=== PATIENT | male | born 1970 ===

== ENCOUNTER 2018-10-04 05:20 | Inpatient (IN) | payer OTHER ==
[~2018-10-04] VITALS: Ht 160 cm; Wt 103.0 kg
[2018-10-04] VITALS (13 sets, daily range): BP systolic 63–145; BP diastolic 58–80
[2018-10-04] MEDS ORDERED: SIMVASTATIN40 MG ORAL (06:10)
[2018-10-04] MEDS ORDERED: LOSARTAN POTAS100 MG ORAL (06:10)
[2018-10-04] MEDS ORDERED: LORATADINE10 M2 PO (06:10)
[2018-10-04] MEDS ORDERED: METFORMIN HCL1000 M1 ORAL (06:10)
[2018-10-04] MEDS ORDERED: JANUVIA100 MG ORAL (06:10)
[2018-10-04] MEDS ORDERED: NOVOLIN R100 UNIT/1 SUBQ (06:13)
[2018-10-04] MEDS ORDERED: NOVOLIN N100 UNIT/1 SUBQ (06:13)
[2018-10-04] MEDS ORDERED: Propofol 1,000mg/ 100ml btl IV ONE (07:00)
[2018-10-04] MEDS ORDERED: ceFAZolin sod 2 GM in D5W 110 ML IVPB SCH (07:00)
[2018-10-04] MEDS ORDERED: fentaNYL 100 mcg/2 mL IV ONE (07:02)
[2018-10-04] MEDS ORDERED: Midazolam 2mg/2ml Inj ONE (07:02)
[2018-10-04] MEDS ORDERED: Gelfoam Size TOPIC ONE (07:03)
[2018-10-04] MEDS ORDERED: Bupivacaine w/Epi 0.5% 30ml Vial INJ ONE (07:03)
[2018-10-04] MEDS ORDERED: Bacitracin 50000 Units Vial ONE (07:03)
[2018-10-04] MEDS ORDERED: Thrombin 5000 units TOPIC ONE ×2 (07:03→07:04)
[2018-10-04] MEDS ORDERED: Succinylcholine 20mg/ml 10ml vial ONE (07:14)
[2018-10-04] MEDS ORDERED: Zemuron 50mg/5ml Inj IV ONE ×2 (07:14→10:02)
[2018-10-04] MEDS ORDERED: D5 1/2NS 1,000 ML IV SCH (07:28)
--- NOTE | 2018-10-04 07:28 | Pre-Procedure Note/Attestation ---
Pre-Procedure Note/Attestation Complete Prior to Procedure Procedure Narrative: TLIF L5S1 with instrumentation with bone marrow aspirate from ilium Indications for Procedure Pre-Operative Diagnosis: anterolisthesis, stenosis, pars fx and radiculopathy L5S1 Attestation I attest that I discussed the nature of the procedure; its benefits; risks and complications; and alternatives (and the risks and benefits of such alternatives ), prior to the procedure, with the patient (or the patient's legal printing supplies sales representative). I attest that, if there was a reasonable possibility of needing a blood transfusion, the patient (or the patient's legal printing supplies sales representative) was given the [place] [facility] [employer] [facility] standardized written summary, pursuant to the [place] Blood Safety Act ([place] Health and Safety Code # 1645, as amended). I attest that I re-evaluated the patient just prior to the surgery and that there has been no change in the patient's H&P, except as documented below: Lemuel Quintana MD Oct 04, 2018 07:28
[2018-10-04] MEDS ORDERED: NS Irrig 1000ml ONE (07:30)
[2018-10-04] MEDS ORDERED: Milk of Magnesia 30ml Ud ORAL PRN (07:30)
[2018-10-04] MEDS ORDERED: HYDROmorphone 1mg/ml Carpuject SUBQ PRN (07:30)
[2018-10-04] MEDS ORDERED: Naloxone 0.4mg/ml Inj IVP PRN (07:30)
[2018-10-04] MEDS ORDERED: Sterile Water Irrig 1000ml IRRIG ONE (07:30)
[2018-10-04] MEDS ORDERED: Acetaminophen 650 MG SUPP RECTAL PRN (07:30)
[2018-10-04] MEDS ORDERED: LR 1000ml ONE (07:30)
[2018-10-04] MEDS ORDERED: Norco 5mg/325mg tab ORAL PRN (07:30)
[2018-10-04] MEDS ORDERED: Heparin 1000 units/ml 1ml Vial ONE (07:51)
[2018-10-04] MEDS ORDERED: ePHEDrine 50mg/ml Inj ONE (08:40)
[2018-10-04] MEDS ORDERED: Sodium Chloride 10ml vial INJ ONE ×2 (08:40→09:04)
[2018-10-04] MEDS ORDERED: Phenylephrine 10mg/ml Vial ONE (08:57)
[2018-10-04] MEDS ORDERED: Morphine Sulfate 10mg/ml Inj ONE (09:03)
--- NOTE | 2018-10-04 09:22 | Anethesia Preoperative Eval ---
Anesthesia Pre-op PMH/ROS General Date of Evaluation: Oct 04, 2018 Time of Evaluation: 07:15 Anesthesiologist: Aarti ASA Score: ASA 3 Mallampati Score Class I : Soft palate, uvula, fauces, pillars visible Class II: Soft palate, uvula, fauces visible Class III: Soft palate, base of uvula visible Class IV: Only hard plate visible Mallampati Classification: Class III Surgeon: Lilian Diagnosis: Lumbar radiculopathy Surgical Procedure: L5-S1 laminotomy with fusion Anesthesia History: none Family History: no anesthesia problems Allergies: Coded Allergies: No Known Allergies (Unverified , 10/04/18) Patient NPO?: Yes NPO Date: Oct 03, 2018 NPO Time: 2199 Past Medical History Cardiovascular: Denies: HTN, CAD, PR, valve dz, arrhythmia, other Pulmonary: Reports: DAVID; Denies: asthma, COPD, other Gastrointestinal/Genitourinary: Reports: GERD; Denies: CRI, ESRD, other Neurologic/Psychiatric: Reports: other - chronic pain; Denies: dementia, CVA, depression/anxiety, TIA Endocrine: Reports: DM - on high dose of insulin; Denies: hypothyroidism, steroids, other HEENT: Denies: cataract (L), cataract (R), glaucoma, [place] (L), [place] (R), other Hematology/Immune: Denies: anemia, DVT, bleeding disorder, other Musculoskeletal/Integumentary: Denies: OA, RA, DJD, DDD, edema, other Other: obesity - morbid obesity PMH Narrative: as above PSxH Narrative: none Anesthesia Pre-op Phys. Exam Physician Exam Last Vital Signs Date Time Temp Pulse Resp B/P (MAP) Pulse Ox O2 Delivery O2 Flow Rate FiO2 10/04/18 06:00 Room Air 10/04/18 05:55 97.2 89 20 145/80 (101) 97 Constitutional: NAD Neurologic: CN 2-12 intact Cardiovascular: RRR, no M/R/G Respiratory: CTA Gastrointestinal: other - obesity Airway Exam Mallampati Score: Class III MO: limited Neck: short ROM: limited Teeth: intact Dentures: no upper, no lower Anesthesia Pre-op A/P Labs see chart Studies Pre-op Studies: EKG - NSR, echo - EF 55-60% Risk Assessment & Plan Assessment: ASA 3 obesity DAVID poorly control DM Plan: GA with ETT potentially difficult airways, prone positioning neuromonitoring, 40 unit of insulin given PM before NPO preor BS 130 down from 137, will monitor intraoperatively Status Change Before Surgery: No Pre-Antibiotics Drug: Ancef 2gr Given Within 1 Hr of Incision: Yes Time Given: 08:12 Murali Broussard MD Oct 04, 2018 09:22
[2018-10-04] MEDS ORDERED: LR 1000ml 1,000 ML IVLG SCH (09:24)
[2018-10-04] MEDS ORDERED: Hydromorphone 0.5mg/0.5ml inj IVP PRN (09:30)
[2018-10-04] MEDS ORDERED: Meperidine 50mg/ml Inj(FOR RIGORS ONLY) IV PRN (09:30)
[2018-10-04] MEDS ORDERED: Ketorolac 30mg Inj IV PRN (09:30)
[2018-10-04] MEDS ORDERED: Acetaminophen (Non formulary) 100 ML IV ONE (09:30)
[2018-10-04] MEDS ORDERED: DiphenhydrAMINE 50mg/ml Inj IVP PRN (09:30)
[2018-10-04] MEDS ORDERED: Midazolam 2mg/2ml Inj IVP PRN (09:30)
[2018-10-04] MEDS ORDERED: Propofol 200mg/20ml IV ONE ×3 (10:25→11:28)
[2018-10-04] MEDS: Vancomycin 1gm vial IVPB ONE ×2 (11:35→12:01)
[2018-10-04] MEDS ORDERED: Ketorolac 30mg Inj ONE (11:58)
[2018-10-04] MEDS ORDERED: Vancomycin 1gm vial IVPB ONE (11:59)
--- NOTE | 2018-10-04 12:37 | Brief Operative Note ---
Immediate Post Operative Note Operative Note Pre-op Diagnosis: anterolisthesis, stenosis, pars fx and radiculopathy L5S1 Procedure: TLIF L5S1 with BMAC Post-op Diagnosis: same as pre-op Findings: consistent w/pre-op dx studies Surgeon: Lilian Foil Spooler: Ileana Anesthesiologist: Aarti Anesthesia: general Specimen: yes Complications: none Condition: stable Fluids: 1200 cc crystalloid Estimated Blood Loss: volume - 150cc Drains: hemovac Implant(s) used?: Yes - RTI biomechanical device, Nuvasive pedicle screws Lemuel Quintana MD Oct 04, 2018 12:37
[2018-10-04] MEDS ORDERED: Insulin Human Regular 100units/ml 3ml ONE (12:52)
--- NOTE | 2018-10-04 12:59 | Immediate Post-Op Evaluation ---
Immediate Post-Op Evalulation Immediate Post-Op Evalulation Procedure: Posterior lumbar L5-S1 laminotomy with decompression and interbody fusion Date of Evaluation: Oct 04, 2018 Time of Evaluation: 12:58 IV Fluids: 1400 Blood Products: none Estimated Blood Loss: 150 Urinary Output: 250 Blood Pressure Systolic: 102 Blood Pressure Diastolic: 56 Pulse Rate: 86 Respiratory Rate: 20 O2 Sat by Pulse Oximetry: 99 Temperature (Fahrenheit): 97.8 Pain Score (1-10): 2 Nausea: No Vomiting: No Complications none Patient Status: reacts, patent, extubated, none Hydration Status: adequate Murali Broussard MD Oct 04, 2018 12:59
[2018-10-04] MEDS ORDERED: Insulin Human Regular 100units/ml 3ml SUBQ ONE (13:00)
[2018-10-04] MEDS ORDERED: Insulin Human Regular 100units/ml 3ml SUBQ SCH (13:00)
[2018-10-04] MEDS ORDERED: ceFAZolin sod 1 GM in D5W 55 ML IV SCH (14:00)
--- NOTE | 2018-10-04 14:27 | NUR ---
NURSE NOTES: Received report from Chantel Carrillo RN, pt a/a/o x4 laying in bed with no signs of distress or other issues at this time. VS: 112/63, 85, 99@3L via n/c. Surgical dressing dry and intact covered with Dermabond, Telfa and Tegaderm. Hemovac in place draining well. Chowdhury in place with yellow clear urine. Removed 250ml prior of sending pt up. pt in clear liquid advance as tolerated. family at bedside. call light within reach. bed in lowest position. side rales up x2. I will f/u as needed.
--- NOTE | 2018-10-04 14:49 | Diagnostic Imaging Report ---
INDICATION: Pain, intraoperative TECHNIQUE: Intraoperative imaging Fluoroscopy time: 23.6 seconds Total dose: 0.60352 mGym2 Total number of images: 5 COMPARISON: None FINDINGS: Intraoperative images demonstrate needles projected posterior to what are presumably L3 and S1. Subsequent image demonstrates surgical tools posterior to L4 and the L5-S1 disc. Suspect images document placement of posterior fusion hardware and a disc spacer at L5-S1 IMPRESSION: Intraoperative imaging, as described
--- NOTE | 2018-10-04 15:46 | 48 Hour Post Anesthesia Eval ---
Post Anesthesia Evaluation Procedure: Posterior lumbar L5-S1 laminotomy with decompression and interbody fusion Date of Evaluation: Oct 04, 2018 Time of Evaluation: 15:45 Blood Pressure Systolic: 111 0: 66 Pulse Rate: 84 Respiratory Rate: 18 Temperature (Fahrenheit): 97.8 O2 Sat by Pulse Oximetry: 98 Airway: patent Nausea: No Vomiting: No Pain Intensity: 3 Hydration Status: adequate Cardiopulmonary Status: Stable Mental Status/LOC: patient returned to baseline Follow-up Care/Observations: 0 Post-Anesthesia Complications: 0 Follow-up care needed: N/A Kashmir Espino MD Oct 04, 2018 15:46
[2018-10-04] MEDS: ceFAZolin sod 1 GM in D5W 55 ML IV SCH (16:13)
[2018-10-04] MEDS: NS w/KCl 20mEq 1,000 ML IV SCH (16:13)
[2018-10-04] MEDS: NovoLOG Insulin Flexpen SUBQ SCH ×2 (17:23→22:12)
[2018-10-04] MEDS: HYDROmorphone 1mg/ml Carpuject IVP PRN (18:24)
[2018-10-04] MEDS: Metoclopramide 10mg/2ml Inj IVP PRN (18:25)
--- NOTE | 2018-10-04 19:51 | Cardiology Progress Note ---
Assessment/Plan Assessment/Plan [id number] doign well post op await po intake to [facility] for now ISS dvt ppx IS use pain control Objective Last 24 Hour Vital Signs Date Time Temp Pulse Resp B/P (MAP) Pulse Ox O2 Delivery O2 Flow Rate FiO2 10/04/18 18:54 97.8 10/04/18 16:00 97.8 78 18 109/63 (78) 100 10/04/18 15:46 84 18 98 10/04/18 15:00 97.8 81 18 111/66 (81) 98 10/04/18 14:30 97.8 82 18 112/67 (82) 98 10/04/18 13:56 97.4 85 20 63/67 99 Nasal Cannula 3 10/04/18 13:50 86 22 109/67 100 Nasal Cannula 3 10/04/18 13:40 83 16 108/70 100 Nasal Cannula 3 10/04/18 13:39 97.4 10/04/18 13:39 97.4 10/04/18 13:30 85 21 113/67 100 Nasal Cannula 3 10/04/18 13:15 85 19 115/71 100 Simple Mask 6 10/04/18 13:00 82 17 108/67 100 Simple Mask 6 10/04/18 12:59 86 20 99 10/04/18 12:55 87 18 108/65 100 Simple Mask 6 10/04/18 12:49 97.3 88 22 101/59 100 Simple Mask 6 10/04/18 06:00 Room Air 10/04/18 05:55 97.2 89 20 145/80 (101) 97 Intake and Output 10/03/18 10/04/18 19:00 07:00 # Voids 1 Berny Castellanos MD Oct 04, 2018 19:51
--- NOTE | 2018-10-04 20:37 | NUR ---
NURSE NOTES: given report umberto Ang RN, pt in stable condition. I&O's Hemovac out put: 140ml
[2018-10-05] VITALS: BP 119/73
[2018-10-05] MEDS: ceFAZolin sod 1 GM in D5W 55 ML IV SCH ×2 (00:17→08:59)
[2018-10-05] MEDS: HYDROcodone/Acetamin 7.5/325 tab ORAL PRN (00:47)
--- NOTE | 2018-10-05 01:15 | Operative Note - Dictated ---
DATE OF OPERATION: 10/04/2018 PREOPERATIVE DIAGNOSES: L5-S1 grade 1 anterolisthesis, bilateral pars fracture, disk protrusion, severe stenosis, impingement and instability, and left lower extremity radiculopathy. POSTOPERATIVE DIAGNOSES: L5-S1 grade 1 anterolisthesis, bilateral pars fracture, disk protrusion, severe stenosis, impingement and instability, and left lower extremity radiculopathy. PROCEDURES PERFORMED: 1. Posterior interbody fusion at L5-S1. 2. Posterolateral arthrodesis at L5-S1. 3. Pedicle screw instrumentation at L5-S1. 4. Insertion of biomechanical device at interbody space at L5-S1. 5. Use of a bone marrow aspirate concentrate, allograft, and local autograft at L5-S1 for fusion. 6. Right iliac bone marrow aspiration. SURGEON: Lemuel Quintana M.D. PEDIATRIC INTENSIVE PHYSICIAN: Vitor Tejeda M.D. ANESTHESIA: General endotracheal anesthesia. ANESTHESIOLOGIST: Dr. Broussard. INTRAOPERATIVE FINDINGS: Bilateral pars fracture at L5 with severe stenosis bilateral exiting L5 nerve roots with large fibrocartilaginous masses anterior to the pars fracture contributing to impingement of the exiting L5 nerve roots with severe foraminal stenosis with bilateral exiting L5 nerve roots. ESTIMATED BLOOD LOSS: 150 mL. FLUIDS: 1.2 L of crystalloid. INDICATIONS: This is a pleasant gentleman with failed nonoperative treatments including five epidural steroid injections as well as a long course of nonoperative treatment. With failed nonoperative treatment, at this point, my recommendation was for the above surgery. Risks, alternatives, and benefits were discussed with the patient at length. Risks include, but are not limited to, anesthesia complications including , medical complications including liver, kidney, cardiopulmonary deficits, , bleeding, infection, dural tear, CSF leak, nerve root injury, cauda equina syndrome, screw cutoff, screw failure, paralysis as well as other complications. The patient understood and wished to proceed. Written and verbal consent was given. DESCRIPTION OF OPERATION: The patient was brought into the operating room supine on a stretcher. Appropriate IV lines placed by the anesthesiologist. Ancef 2 g was administered before incision and another gram of Ancef was administered intraoperative. A surgical time-out was called. Anesthesia was induced. The patient was successfully intubated. Sequential compression devices were placed onto the bilateral lower extremities. SSEP neurophysiological leads were placed for monitoring of SSEP, EMG, and dermatomal EMGs, and by the end of the case, there was improvement in the dermatomal EMGs of the bilateral L5 nerves. A Chowdhury was placed under sterile conditions. The patient was gently turned prone onto the Simone table. All bony prominences were well padded and the abdomen was assured to lay freely. The L5-S1 interspace was positively identified via fluoroscopy and an indelible marker was used to juliana the midline. The patient was prepped and draped in the usual sterile fashion with alcohol, chlorhexidine scrub, ChloraPrep, and Ioban draping. At this point, me and my anesthesiology physician assistant were prepped and gowned appropriately. The intraoperatively sterilely draped microscope was brought into the field and the surgery was done from skin cut to skin closure with the intraoperatively sterilely draped microscope. A midline incision was carried out with a scalpel to the level of the dorsolumbar fascia. Via a separate fascial incision, the right posterosuperior iliac spine was found and with a Jamshidi needle, 30 mL of bone marrow was aspirated from three different areas of the ilium and was passed off for concentration for stem cells. These stem cells were mixed with the local autograft and Ceci allograft and was used in the interbody space for fusion as well as the posterolateral gutters for fusion. Again, the aspiration was done after the skin incision, but before the midline fascial incision, and was placed in the interbody space as well as the posterolateral gutters later in the operation. Now, subperiosteal dissection was carried out to L5-S1 including the transverse processes bilaterally at L5 to sacral ala. The L4-L5 facet joint capsule was well preserved. A radiopaque marker was placed at the level of the lower pedicle and the S1 pedicle was positively identified and thus the L5-S1 interspace was positively identified. A rongeur was used to examine the lamina at L5 and the lamina was unstable and loose secondary to bilateral pars fractures. The pars area was examined and both pars at L5 were fractured through and through. Retractors were set into place and at this point, attention was diverted to the decompression. With the use of a high-speed drill as well as a Leksell rongeur, #2 to #5 Kerrison punches, a laminectomy, foraminotomy, and excision of the inferior articular facet at L5 bilaterally was done. An extensive foraminotomy bilaterally was done for the exiting L5 nerve roots, which were severely compressed and impinged and stenotic as they were exiting the foramina, and through their course from the medial aspect of the L5 pedicles where there was a large fibrocartilaginous mass growing; the large fibrocartilaginous mass was deep to the pars area, which was fractured. With a #2 Kerrison punch, the fibrocartilaginous mass was removed bilaterally and the L5 nerve root was completely decompressed throughout its course around the medial aspect of the pedicles and through the foraminal space. A portion of the S1 lamina on the left side was also removed for complete decompression of the traversing and exiting S1 nerve root and a complete skeletonization of the left S1 pedicle was done with #2 and #3 Kerrison punches as well as with a 3-0 and 4-0 curved curettes. Once this was accomplished now, a Lemhi probe was placed immediately cephalad to the cephalad portion of the left S1 pedicle protecting the exiting L5 nerve root and a high-speed drill was used to completely remove the left superior articular facet of S1 to further decompress the exiting L5 nerve root on the left side. Once this was done, with a [place] #4 and nerve root retractor, the neural elements were carefully retracted medially and with bipolar cautery, the epidural veins were cauterized and a micro scissors was used to cut the coagulated epidural vein and a disk protrusion at L5-S1 was found extending into the left foramina and impinging on the exiting left L5 nerve root. Once this was done, a #11 blade was used to make a box incision in the posterior annulus of the disk and with the use of pituitary rongeurs, straight forward angled, backward angled, Peapod, nerve hook as well as different ti, a radical diskectomy at L5-S1 was accomplished. Endplate cartilage was removed. Endplate bone was well preserved, and at this point, attention was diverted to placement of the right L5 and S1 pedicle screws. A high-speed drill was used at the level of the mammillary process at L5 and the posterolateral aspect of the remainder of the superior articular facet, and with a Lenke probe, the center of the pedicle was probed and was checked via biplanar fluoroscopy. Once this was completed, a ball-tip probe was used and the pedicles were found to not have any breaches, 5.5 tap from the NuVasive system was used to tap the center of the pedicles and the following pedicle screws were placed on the right side. At L5, a 6.5 x 45 mm polyaxial screw from the NuVasive Reline System was used and at S1, a 6.5 x 40 mm screws were used. All screws were from the NuVasive system. The screws had excellent purchase and the S1 screw on the right side had bicortical purchase. Once this was done, a provisional kp was used with setscrews to distract at the L5-S1 level thus facilitating insertion of the biomechanical devices via a left-sided transforaminal approach. Once this was accomplished, a trial from the Memopal TETRAfuse 3D system was used and a 9 mm in height lordotic 6-degree, 22 mm in length TETRAfuse biomechanical device was chosen. The anterior interbody space was packed with local autograft from the laminectomy, [place] allograft as well as bone morphogenic protein. This was packed with a funnel into the anterior interbody space and subsequently the biomechanical device was tamped into place at L5-S1 with re-creation of disk height and excellent apposition against the endplates at L5 and S1 without any subsidence or fracturing of the endplates. The biomechanical device was found to be in excellent position and fitting well and stable within the interbody space. The introducer was removed and biplanar fluoroscopy revealed the instrumentation to be in good position. At this point, the provisional kp was released from the right side and attention was diverted to the left L5 and S1 pedicle. With a Lenke curved probe, the pedicles at left L5 and S1 were found via biplanar fluoroscopy, a ball-tip probe was used. There were no cortical breaches. Appropriate-sized 5.5 mm tap was used to tap the center of the pedicle and the following pedicle screws were placed on the left side at L5, 6.5 x 50 mm and at S1, 6.5 x 25 mm. Each screw had excellent purchase and was stable. At this point, stimulus-evoked EMG was done at each screw and at 20 milliamps of current, there was no conduction in the respective nerve roots. Once this was completed, the wound was copiously irrigated with triple antibiotic solution and 4 mL of Tisseel fibrin glue was placed at the posterior annulotomy site to prevent posterior migration of bone morphogenic protein from interbody space. Once this was done, decortication of the transverse process and sacral ala was done and with local autograft and allograft and BMAC, a posterolateral arthrodesis was done and placement of bone graft and the posterolateral gutters was accomplished on the right side. These stem cells were mixed with the local autograft and Ceci allograft and was used in the interbody space for fusion as well as the posterolateral gutters for fusion. The bone marrow aspiration was done after the skin incision, but before the midline fascial incision, and was placed in the interbody space as well as the posterolateral gutters. At this point, attention was diverted to placement of rods and screws in the tulips of the pedicle screws, setscrews were placed and were torqued appropriately, and at this point, Valsalva 40 mmHg was done. There was no CSF leak. All sponge, needle, and instrument counts were correct. A subfascial Hemovac drain was placed. Vancomycin powder 1 g was placed subfascially and 1 g was placed suprafascially. The dorsal lumbar fascia was closed with #1 Vicryl sutures in a watertight interrupted fashion. The subdermal and subcuticular layers were closed with 2-0 Vicryl sutures. The skin was closed with Dermabond. Sterile dressing tape was placed. There were no complications during the case. All sponge, needle, and instrument counts were correct. The patient was turned supine, was found to be in stable condition, was taken to the recovery room in stable condition, and was admitted to the hospital for monitoring. Lemuel Quintana M.D. DR: ENID JOB#: [id number] CC: FELICE
--- NOTE | 2018-10-05 02:30 | Consultation ---
DATE OF CONSULTATION: 10/04/2018 INTERNAL MEDICINE CONSULTATION CONSULTING PHYSICIAN: Berny Castellanos M.D. REFERRING PHYSICIAN: Lemuel Quintana M.D. REASON FOR REFERRAL: Postoperative medical care. HISTORY OF PRESENT ILLNESS: This is a 47-year-old gentleman with history of hypertension, who presented to the hospital after having had surgery for lumbar radiculopathy. This was completed by Dr. Quintana. He did not receive any steroids. The patient's blood sugar preop had dropped, we will monitor and they are adequate. The patient had been NPO. The patient now being seen. He has had some clear liquids, although not much. His main issue has been somewhat nausea. No vomiting. He really does not have any chest pain or shortness of breath. He does not have any PND, orthopnea, and palpitations. PAST MEDICAL HISTORY: Positive for diabetes mellitus. MEDICATIONS: His medications prior to admission include Novolin insulin, metformin 500 mg twice daily, Januvia 100 mg daily, simvastatin 40 mg daily, and loratadine 10 mg daily. SOCIAL HISTORY: He does not smoke. No alcohol. No drugs. FAMILY HISTORY: Father is alive at age 70. Mother is alive at age 71. Twin brothers, one sister healthy. Two sons, one daughter healthy. Family history is positive for history of high blood pressure. ALLERGIES: He has no known drug allergies. REVIEW OF SYSTEMS: GASTROINTESTINAL: Positive for nausea. No vomiting. No bowel movement. GENITOURINARY: He has a Chowdhury catheter in place. No discomfort on urination. PULMONARY: Denies any coughing or wheezing. CONSTITUTIONAL: No fevers, chills, or night sweats. NEUROLOGIC: Negative. He does have some pain at the site of his surgery. LABORATORY VALUES: Ordered. Preoperatively, EKG, sinus rhythm, normal QRS axis, no ST or T-wave abnormalities. His blood tests, sodium 142, potassium 4.5, chloride 102, bicarbonate 28, BUN of 13, creatinine 0.77, and blood sugars 112. His white count 9.3, hemoglobin 13.6, and platelet count of 275. His PT and PTT within normal limits. ASSESSMENT/PLAN: 1. Anterolisthesis, stenosis, fracture and radiculopathy of L5-S1. 2. Diabetes mellitus. 3. Obesity. Dr. Quintana states he was seen in cardiac consultation. The patient was just started on some clear liquids. He seems to have some nausea, which is to be treated with pain medications. He has not been out of bed yet. His p.o. intake is restricted. The patient was placed on insulin sliding scale. Adjustment based on his p.o. intake. Once adequate by mouth intake is assured and intolerance is short, the patient will be started on his usual diabetic medications and other medications for pain control. As per yourself, he will be continued DVT prophylaxis and incentive spirometer. We will discuss with the patient, hopefully will be able to get up from and possibly go home soon thereafter. His vital signs appeared to be stable. His blood pressure is 109/63, temperature 97.8, heart rate is 78. He looks well. He is comfortable lying down, although we will assess again tomorrow morning depending on his ability to take p.o. intake for addition of medications for diabetes. Berny Castellanos M.D. DR: WIL JOB#: [id number] CC:
[2018-10-05] MEDS: NS w/KCl 20mEq 1,000 ML IV SCH ×3 (03:43→22:17)
[2018-10-05] MEDS: Metoclopramide 10mg/2ml Inj IVP PRN (03:58)
[2018-10-05] MEDS: HYDROmorphone 1mg/ml Carpuject IVP PRN ×5 (03:58→17:14)
[2018-10-05 04:00] VITALS: BP 133/75
[2018-10-05] MEDS: NovoLOG Insulin Flexpen SUBQ SCH ×4 (06:37→20:31)
--- NOTE | 2018-10-05 07:45 | NUR ---
HAND-OFF: Report given to JULIO LOBO.
[2018-10-05 08:00] VITALS: BP 128/72
--- NOTE | 2018-10-05 08:28 | NUR ---
NURSE NOTES: Patient alert x4, on nasal cannula at 3 liter, no sign of distress and shortness of breath. No sign of chest pain. Dressing at the lumbar dry and intact, hemovac drains bloody drainage. IV left hand runs fluid at 100 cc. Will give pain med as needed. Family member at the bed side. Bed at lowest position, side rails up x2, breaks engaged. Call light within reach. Will keep monitoring.
[2018-10-05] MEDS: Docusate 100mg cap ORAL SCH ×2 (08:58→17:14)
--- NOTE | 2018-10-05 11:32 | NUR ---
CASE MANAGEMENT: INITIAL REVIEW 47 YO M PRESENTED TO OUR ED FROM HOME CC: BACK PAIN PMHx: HTN. DM. BACK INJURY. SI:LUMBAR RADICULOPATHY. T 97.2 HR 89 RR 20 B/P 145/80 SATS 97% ON RA NO LABS TODAY IS: OR MEDS PATIENT ADMITTED TO MED/SURG 10/04/2018 @ 0728 DCP: PATIENT TO BE DISCHARGED TO HOME ONCE MEDICALLY CLEARED. PLAN OF CARE: PT EVAL FULL LIQUID Procedure Narrative: TLIF L5S1 with instrumentation with bone marrow aspirate from ilium Pre-Operative Diagnosis: anterolisthesis, stenosis, pars fx and radiculopathy L5S1
--- NOTE | 2018-10-05 14:38 | Cardiology Progress Note ---
Assessment/Plan Assessment/Plan 1. Anterolisthesis, stenosis, fracture and radiculopathy of L5-S1. 2. Diabetes mellitus. 3. Obesity. doing well post op d no 1 had flatus walked no bm stillwith pain and [place] tolerate some diet ISS will restart metformin dvt ppx IS use pain control ambualte Subjective Cardiovascular: Denies: chest pain, lightheadedness, palpitations Respiratory: Denies: shortness of breath Gastrointestinal/Abdominal: Reports: nausea, other - no bm bu t had odalys faltus ; Denies: abdominal pain Genitourinary: Reports: no symptoms Objective Last 24 Hour Vital Signs Date Time Temp Pulse Resp B/P (MAP) Pulse Ox O2 Delivery O2 Flow Rate FiO2 10/05/18 12:30 98.5 10/05/18 09:00 Nasal Cannula 3.0 10/05/18 08:00 98.0 89 18 128/72 (90) 98 10/05/18 04:00 97.1 90 18 133/75 (94) 99 10/05/18 01:17 98.5 10/05/18 00:00 98.0 88 18 119/73 (88) 98 10/04/18 21:00 Nasal Cannula 3.0 10/04/18 20:00 98.5 73 18 102/58 (73) 98 10/04/18 16:00 97.8 78 18 109/63 (78) 100 10/04/18 15:46 84 18 98 10/04/18 15:00 97.8 81 18 111/66 (81) 98 General Appearance: alert Neck: supple Cardiovascular: normal rate, regular rhythm Respiratory/Chest: lungs clear, normal breath sounds Abdomen: normal bowel sounds, non tender, soft Extremities: no swelling, other - pneuamonatic stokcing in palce Intake and Output 10/04/18 10/05/18 18:59 06:59 Intake Total 2100 ml 300 ml Output Total 400 ml 1320 ml Balance 1700 ml -1020 ml Intake Oral 100 ml IV Total 2100 ml 200 ml Output Urine Total 250 ml 1200 ml Drainage Total 120 ml Estimated Blood Loss 150 ml Berny Castellanos MD Oct 05, 2018 14:38
--- NOTE | 2018-10-05 15:01 | NUR ---
PT Note PT ministerio completed, treatment initiated. Patient was able to ambulate with a FWW x 80 ft. He c/o dizziness during gait training. Patient needs PT services to increase his muscle strength and to educate/train him and family on proper body mechanics for safe and independent functional mobility and gait. Addendum: 10/05/18 at 1502 by DAPHNEY JUAREZ PT Amended: Links added.
[2018-10-05 16:00] VITALS: BP 117/74
[2018-10-05 16:58] LABS: ANION GAP 7 mmol/L (5-15); BLOOD UREA NITROGEN 9 mg/dL (7-18); CALCIUM 7.8 MG/DL (8.5-10.1); CARBON DIOXIDE 30 MMOL/L (21-32); CHLORIDE 105 MMOL/L (98-107); CREATININE 0.9 MG/DL (0.55-1.30); POTASSIUM 4.4 MMOL/L (3.5-5.1); SODIUM 142 MMOL/L (136-145)
[2018-10-05] MEDS: metFORMIN 500mg tab ORAL SCH (18:38)
--- NOTE | 2018-10-05 19:41 | NUR ---
HAND-OFF: Report given to YAMIL Concepcion.
--- NOTE | 2018-10-05 19:42 | NUR ---
NURSE NOTES: Received report & pt from YAMIL Swift. Pt lying in bed, a&ox4, on o2 via NC @ 3LPM, family member at bedside. No s/s of acute distress & c/o 10/10 pain at this time. Will give pain med when due & pt verbalized understanding. Chowdhury intact draining yellow urine output to gravity. Hemovac intact. Surgical dressing C/D/I. IV site intact with IVF running as ordered. Bed in lowest position, call light within reach. Will continue to monitor.
[2018-10-05 20:00] VITALS: BP 133/77
[2018-10-06] VITALS: BP 127/71
[2018-10-06 04:00] VITALS: BP 122/69
[2018-10-06] MEDS: NovoLOG Insulin Flexpen SUBQ SCH ×4 (06:08→20:13)
--- NOTE | 2018-10-06 07:17 | NUR ---
HAND-OFF: Report given to YAMIL Mancia.
--- NOTE | 2018-10-06 07:30 | NUR ---
NURSE NOTES: Patient is in bed awake and able to verbalize needs. Stable with no s/s acute distress. Denies pain at this time. Surgical site clean, dry, and intact. Patient comfortable in bed in locked position with call light within reach. Will continue to monitor.
[2018-10-06 08:00] VITALS: BP 131/75
[2018-10-06] MEDS: NS w/KCl 20mEq 1,000 ML IV SCH ×2 (08:01→17:29)
[2018-10-06] MEDS: metFORMIN 500mg tab ORAL SCH ×2 (08:58→17:29)
[2018-10-06] MEDS: Docusate 100mg cap ORAL SCH ×2 (08:58→17:29)
[2018-10-06] MEDS: HYDROcodone/Acetamin 7.5/325 tab ORAL PRN ×4 (10:03→20:30)
[2018-10-06 11:47] VITALS: BP 113/61
--- NOTE | 2018-10-06 14:20 | Cardiology Progress Note ---
Assessment/Plan Assessment/Plan 1. Anterolisthesis, stenosis, fracture and radiculopathy of L5-S1. 2. Diabetes mellitus. 3. Obesity. doing well post op d no 2 had flatus no bm no bm still with pain andif sits walked already bu cannot sit tolerate some diet ISS on metformin i on clear liquid only will add lwo dose januvia as bs [id number] dvt ppx IS use pain control ambualte will have ekg in light of chest pain he said he had on my question ing ( he never complained to the staff about nay cp ) jackson will see later today d/w rn Subjective Cardiovascular: Reports: chest pain - left side nto suer if related to his position durigtn surgery he says ; Denies: lightheadedness Respiratory: Denies: shortness of breath Gastrointestinal/Abdominal: Denies: abdominal pain Genitourinary: Denies: burning Subjective pain in the left leg when tries to sit for more than 1 min he says Objective Last 24 Hour Vital Signs Date Time Temp Pulse Resp B/P (MAP) Pulse Ox O2 Delivery O2 Flow Rate FiO2 10/06/18 11:47 98.5 88 18 113/61 (78) 97 10/06/18 09:00 Nasal Cannula 2.0 10/06/18 08:00 99.0 99 18 131/75 (93) 96 10/06/18 04:00 98.6 84 17 122/69 (86) 98 10/06/18 00:00 98.7 87 18 127/71 (89) 97 10/05/18 21:00 Nasal Cannula 2.0 10/05/18 20:00 97.7 101 18 133/77 (95) 98 10/05/18 17:44 98.5 10/05/18 16:00 98.0 96 18 117/74 (88) 96 General Appearance: no apparent distress, alert, obese Cardiovascular: normal rate, regular rhythm Respiratory/Chest: lungs clear Abdomen: normal bowel sounds, non tender, soft Extremities: no swelling Intake and Output 10/05/18 10/06/18 18:59 06:59 Intake Total 1100 ml 1600 ml Output Total 2443 ml 1930 ml Balance -1343 ml -330 ml Intake Oral 300 ml IV Total 1100 ml 1300 ml Output Urine Total 2400 ml 1900 ml Drainage Total 43 ml 30 ml Laboratory Tests Test 10/05/18 15:50 Sodium Level 142 MMOL/L (136-145) Potassium Level 4.4 MMOL/L (3.5-5.1) Chloride Level 105 MMOL/L (98-107) Carbon Dioxide Level 30 MMOL/L (21-32) Anion Gap 7 mmol/L (5-15) Blood Urea Nitrogen 9 mg/dL (7-18) Creatinine 0.9 MG/DL (0.55-1.30) Estimat Glomerular Filtration Rate > 60 mL/min (>60) Glucose Level 233 MG/DL (74-106) H Calcium Level 7.8 MG/DL (8.5-10.1) L Microbiology Date/Time Source Procedure Growth Status 10/04/18 06:03 Nasal Nares MRSA Culture - Final NO METHICILLIN RESISTANT STAPH AUREUS... Complete Berny Castellanos MD Oct 06, 2018 14:20
--- NOTE | 2018-10-06 14:30 | NUR ---
NURSE NOTES: Removed powell catheter as ordered, tolerated well, no s/s burning or discomfort. Will continue to monitor patient.
--- NOTE | 2018-10-06 15:30 | NUR ---
NURSE NOTES: Patient voided in toilet. No complaints of burning or discomfort when urinating. Will continue to monitor.
[2018-10-06 15:39] LABS: BASOPHILS % (AUTO) 0.5 % (0.0-2.0); EOSINOPHILS % (AUTO) 0.6 % (0.0-3.0); HEMATOCRIT 32.9 % (42.0-52.0); HEMOGLOBIN 10.8 G/DL (14.2-18.0); MEAN CORPUSCULAR VOLUME 83 FL (80-99); MONOCYTES % (AUTO) 7.2 % (1.0-10.0); NEUTROPHILS % (AUTO) 75.7 % (45.0-75.0); PLATELET COUNT 215 K/UL (150-450); RED BLOOD COUNT 3.95 M/UL (4.70-6.10); RED CELL DISTRIBUTION WIDTH 12.1 % (11.6-14.8); WHITE BLOOD COUNT 11.1 K/UL (4.8-10.8)
[2018-10-06 16:00] VITALS: BP 127/76
--- NOTE | 2018-10-06 17:15 | NUR ---
NURSE NOTES: Dr. Quintana removed hemovac and changed surgical dressing, tolerated well. Patient complains of 8/10 pain, will administer pain medication as ordered. Patient is stable and comfortable in bed in locked position with call light within reach.
--- NOTE | 2018-10-06 17:44 | General Progress Note ---
Subjective Constitutional: Reports: no symptoms HEENT: Reports: no symptoms Cardiovascular: Reports: no symptoms Respiratory: Reports: no symptoms Gastrointestinal/Abdominal: Reports: no symptoms Genitourinary: Reports: no symptoms Neurologic/Psychiatric: Reports: no symptoms Endocrine: Reports: no symptoms Hematologic/Lymphatic: Reports: no symptoms Allergies: Coded Allergies: No Known Allergies (Unverified , 10/04/18) Subjective Pt is doing well. Minimal pain. Standing, walking and sitting. Tolerating diet. On ISS. Some left leg discomfort in the AM; now resolved. AVSS A and O times 3 Inc cdi dressing changed HV 30cc-- dc'd calves soft and nt LT intact; 5/5 motor in the UE and LE; abd soft and nt BS 196 Hg 10.8 A: Doing well on POD 2 P: ambulate PT pain meds medicine fu dc tomorrow fu 7 days post op instructions given Objective Last 24 Hour Vital Signs Date Time Temp Pulse Resp B/P (MAP) Pulse Ox O2 Delivery O2 Flow Rate FiO2 10/06/18 16:00 98.6 93 20 127/76 (93) 97 10/06/18 11:47 98.5 88 18 113/61 (78) 97 10/06/18 09:00 Nasal Cannula 2.0 10/06/18 08:00 99.0 99 18 131/75 (93) 96 10/06/18 04:00 98.6 84 17 122/69 (86) 98 10/06/18 00:00 98.7 87 18 127/71 (89) 97 10/05/18 21:00 Nasal Cannula 2.0 10/05/18 20:00 97.7 101 18 133/77 (95) 98 10/05/18 17:44 98.5 Intake and Output 10/05/18 10/06/18 18:59 06:59 Intake Total 1100 ml 1600 ml Output Total 2443 ml 1930 ml Balance -1343 ml -330 ml Intake Oral 300 ml IV Total 1100 ml 1300 ml Output Urine Total 2400 ml 1900 ml Drainage Total 43 ml 30 ml Laboratory Tests 10/06/18 15:10: White Blood Count 11.1H, Red Blood Count 3.95L, Hemoglobin 10.8L, Hematocrit 32.9L, Mean Corpuscular Volume 83, Mean Corpuscular Hemoglobin 27.4, Mean Corpuscular Hemoglobin Concent 32.8, Red Cell Distribution Width 12.1, Platelet Count 215, Mean Platelet Volume 7.8, Neutrophils (%) (Auto) 75.7H, Lymphocytes ( %) (Auto) 16.0L, Monocytes (%) (Auto) 7.2, Eosinophils (%) (Auto) 0.6, Basophils (%) (Auto) 0.5 Height (Feet): 5 Height (Inches): 3.00 Weight (Pounds): 227 Lemuel Quintana MD Oct 06, 2018 17:44
--- NOTE | 2018-10-06 19:27 | NUR ---
HAND-OFF: Report given to Carlene LOBO. Patient is stable.
--- NOTE | 2018-10-06 19:30 | NUR ---
NURSE NOTES: Received report & pt from YAMIL Mancia. Pt lying in bed, a&ox4, in room air, family member at bedside. No s/s of acute distress & c/o 4/10 pain at this time. Will give pain med when due & pt verbalized understanding. Surgical dressing C/D/I. IV site intact with IVF running as ordered. Bed in lowest position, call light within reach. Will continue to monitor.
[2018-10-06 20:00] VITALS: BP 121/64
[2018-10-07] MEDS: NS w/KCl 20mEq 1,000 ML IV SCH ×2 (03:24→13:58)
[2018-10-07] MEDS: HYDROcodone/Acetamin 7.5/325 tab ORAL PRN ×2 (03:28→16:37)
[2018-10-07 03:35] VITALS: BP 131/78
[2018-10-07] MEDS: NovoLOG Insulin Flexpen SUBQ SCH ×3 (05:58→16:42)
[2018-10-07] MEDS ORDERED: sitaGLIPtin 25mg tab ORAL SCH (06:30)
--- NOTE | 2018-10-07 07:30 | NUR ---
NURSE NOTES: Patient is in bed awake and able to verbalize needs. Stable with no s/s acute distress. Patient denies pain or SOB at this time. Surgical site clean, dry, and intact. Patient is eating breakfast, tolerated well. IV infusing as ordered, no complications noted. Patient is comfortable in bed with at bedside and call light within reach. All needs met at this time. Will continue to monitor.
--- NOTE | 2018-10-07 07:38 | NUR ---
HAND-OFF: Report given to YAMIL Mancia.
[2018-10-07 08:00] VITALS: BP 127/79
[2018-10-07] MEDS: metFORMIN 500mg tab ORAL SCH (09:18)
[2018-10-07] MEDS: Docusate 100mg cap ORAL SCH (09:18)
[2018-10-07] MEDS: HYDROmorphone 1mg/ml Carpuject IVP PRN (09:25)
[2018-10-07 12:00] VITALS: BP 135/67
--- NOTE | 2018-10-07 17:25 | NUR ---
NURSE NOTES: staffing branch manager Latonia instructed RN to send patient home with raised toilet seat and front wheel walker in patient's room upon discharge. Charge nurse made aware. Will discharge patient as ordered.
--- NOTE | 2018-10-07 18:30 | NUR ---
NURSE NOTES: Patient discharged home as ordered. Stable with no s/s acute distress. Patient denies pain at this time. IV removed without complications. Surgical site is clean, dry, and intact. Patient was given thorough discharge instructions by RN, patient verbalized understanding. Patient has all belongings. Skin is clean, dry, and intact. Patient was given front wheel walker and raised toilet seat as instructed by case management director Latonia. Patient was assisted to private vehicle via wheelchair without incident.
--- NOTE | 2018-10-09 14:42 | Discharge Summary ---
Discharge Summary Hospital Course Date of Admission Oct 04, 2018 at 05:20 Date of Discharge Oct 07, 2018 at 18:44 Admitting Diagnosis Lumbar radiculopathy Reason for Hospitalization: Elective surgery HPI Errol Maloney is a 47 year old male who was admitted on Oct 04, 2018 at 05:20 for anterolisthesis, stenosis, pars fracture and radiculopathy L5-S1. Patient was admitted for elective surgery Consultations Dr. Castellanos-IM/cardio Procedures s/p 10/04/[address] Quintana 1. Posterior interbody fusion at L5-S1. 2. Posterolateral arthrodesis at L5-S1. 3. Pedicle screw instrumentation at L5-S1. 4. Insertion of biomechanical device at interbody space at L5-S1. 5. Use of a bone marrow aspirate concentrate, allograft, and local autograft at L5-S1 for fusion. 6. Right iliac bone marrow aspiration. Hospital Course status post surgery course of recovery uneventful initially IV fluids s/p perioperative antibiotics neurovascular status closely monitored, stable incision clean dry and intact with dressing, dressing changed by surgeon pain management addressed ; pain controlled hemodynamically stable ambulated with PT fall precautions maintained; safe for ambulation DVT prophylaxis provided incentive spirometry use encouraged while in the bed tolerated diet , IV fluids discontinued GI prophylaxis provided antiemetics were on board as needed blood sugar was closely monitored and managed with metformin, and sliding scale of insulin as needed, low dose of Januvia was added by validation specialist for better BS control voided freely bowel regimen instituted patient was stable for discharge discharge instructions provided follow up with surgeon as outpatient as advised by surgeon FINAL DIAGNOSES -L5-S1 grade 1 anterolisthesis, bilateral pars fracture, disk protrusion, severe stenosis, impingement and instability, left lower extremity radiculopathy - s/p TLIF L5-S1 with BMAC - Diabetes mellitus -Obesity Discharge Medications Continued Medications: Insulin Regular, Human* (Novolin R*) 100 Unit/1 Ml Vial 0 SUBQ BID, UNITS (This prescription has been renewed) Loratadine (Loratadine) 10 Mg Tablet 10 MG PO DAILY, TAB (This prescription has been renewed) Losartan Potassium (Losartan Potassium) 100 Mg Tablet 100 MG ORAL DAILY, TAB (This prescription has been renewed) Metformin Hcl* (Metformin Hcl*) 1,000 Mg Tablet 1000 MG ORAL BID, TAB (This prescription has been renewed) Nph, Human Insulin Isophane* (Novolin N*) 100 Unit/1 Ml Vial 41 UNITS SUBQ BID, VIAL (This prescription has been renewed) Simvastatin (Zocor) 40 Mg Tablet 40 MG ORAL BEDTIME, TAB (This prescription has been renewed) Sitagliptin (Januvia) 100 Mg Tablet 100 MG ORAL DAILY, TAB (This prescription has been renewed) Discharge Discharge Disposition Patient was discharged to Home (01) Discharge Instructions Discharge Instructions Special Instructions I have been assigned to complete a D/C Summary on this account. I was not involved in the patient management Rosmery Barriga NP Oct 09, 2018 14:42
== END 2018-10-07 18:44 | disposition home or self-care (01) | DRG 460 ==
LOC: SDSOVERFLO 05:20 → 3E 14:09
PROC: 0SG30AJ Fusion of Lumbosacral Joint with Interbody Fusion Device, Posterior Approach, Anterior Column, Open Approach (ICD-10-PCS; principal; 2018-10-04 07:30)
PROC: 07DR3ZZ Extraction of Iliac Bone Marrow, Percutaneous Approach (ICD-10-PCS; principal; 2018-10-04 07:30)
PROC: 0ST40ZZ Resection of Lumbosacral Disc, Open Approach (ICD-10-PCS; principal; 2018-10-04 07:30)
PROC: 3E0U0GB Introduction of Recombinant Bone Morphogenetic Protein into Joints, Open Approach (ICD-10-PCS; principal; 2018-10-04 07:30)
DX: M43.17 Spondylolisthesis, lumbosacral region (principal); Z68.41 Body mass index [BMI] 40.0-44.9, adult; M43.07 Spondylolysis, lumbosacral region; M54.17 Radiculopathy, lumbosacral region; E11.9 Type 2 diabetes mellitus without complications; Z79.4 Long term (current) use of insulin; E78.00 Pure hypercholesterolemia, unspecified; E66.01 Morbid (severe) obesity due to excess calories; M48.061 Spinal stenosis, lumbar region without neurogenic claudication; M53.2X7 Spinal instabilities, lumbosacral region
CPT/HCPCS: 36415; 72020; 76000; 80048; 82962; 85025; 86850; 86900; 86901; 87081; 93005; 94003; 94150; J1815; J2250; J2370; J2765